=== PATIENT | female | born 2000 | race African-American/Black ===

== ENCOUNTER 2021-05-28 22:10 | Emergency (ER) | payer BC ==
[2021-05-28 22:52] VITALS: BP 135/78; PULSE 98; TEMP 98.4; BMI 18.1
[2021-05-28] MEDS ORDERED: DIPHTH,PERTUSS(ACELL),TET 0.5 ML DISP.SYRIN IM ONE ×2 (23:35→23:43)
[2021-05-29] MEDS ORDERED: DIPHTH,PERTUSS(ACELL),TET 0.5 ML DISP.SYRIN IM ONE ×2 (00:01→00:32)
== END 2021-05-29 01:09 | disposition home or self-care (01) ==
LOC: JER 22:10
PROC: 3E0234Z Introduction of Serum, Toxoid and Vaccine into Muscle, Percutaneous Approach (ICD-10-PCS; principal; 2021-05-28)
DX: S51.852A Open bite of left forearm, initial encounter (principal); W54.0XXA Bitten by dog, initial encounter
CPT/HCPCS: 90715; 99284-25